=== PATIENT | female | born 1990 | race Caucasian/White ===

== ENCOUNTER 2017-03-16 05:37 | Outpatient (CLI) | payer OTHER ==
[~2017-03-16] VITALS: Ht 162.6 cm; Wt 56.2 kg
[~2017-03-16 05:37] MED LIST: ACET1TAB43 PO; ACHD5005 PO; DOCU100C37 PO; DOXY100C2 PO; FERR325T18 PO; IBUP-1773 PO; PREN1TAB76 PO
== END 2017-03-16 11:12 ==
LOC: PREOP 05:37
PROVIDERS: ATTEND Surgery
DX: Z01.818 Encounter for other preprocedural examination (principal); R19.4 Change in bowel habit

== ENCOUNTER 2017-03-23 10:32 | Day surgery (SDC) | payer OTHER ==
[~2017-03-23] VITALS: Ht 162.6 cm; Wt 56.2 kg
[2017-03-23] MEDS ORDERED: LACTATED RINGERS 1,000 ML IV ONE (10:49)
[2017-03-23 11:02] VITALS: BP 116/70
[2017-03-23] MEDS ORDERED: LACTATED RINGERS 1,000 ML IV SCH (11:15)
--- NOTE | 2017-03-23 11:44 | Progress Note-Pre Operative ---
Pre-Operative Progress Note H&P Reviewed The H&P was reviewed, patient examined and no changes noted. Time Seen by Provider: 11:30 Date H&P Reviewed: Mar 23, 2017 Time H&P Reviewed: 11:28 Pre-Operative Diagnosis: Family hx of colon CA, rectal bleed SANJANA MEDINA DO Mar 23, 2017 11:44
[2017-03-23] MEDS ORDERED: proPOfol 200 MG/20 ML (DIPRIVAN) VIAL IV ONE (11:47)
[2017-03-23] MEDS ORDERED: MIDAZOLAM 2 MG/2 ML (VERSED) VIAL ONE (11:48)
--- NOTE | 2017-03-23 12:30 | Progress Note-Post Operative ---
Post-Operative Progess Note Surgeon (s)/Pediatric Clinical Nurse Specialist (s) Surgeon SANJANA MEDINA DO Pediatric Clinical Nurse Specialist: none Pre-Operative Diagnosis Family hx of colon CA, rectal bleed Post-Operative Diagnosis same Int hemorrhoids Ext hemorrhoids Procedure & Operative Findings Date of Procedure 03/23/17 Procedure Performed/Findings colonoscopy Anesthesia Type IV sedation by anesthesia Estimated Blood Loss Estimated blood loss (mL): scant Specimens/Packing Specimens Removed none SANJANA MEDINA DO Mar 23, 2017 12:30
--- NOTE | 2017-03-23 12:31 | Endoscopy Discharge Instruct ---
Endo Procedure/Findings Findings 1.: Internal Hemorrhoids 2.: Other Findings (External Hemorrhoids) Discharge Instructions - Activity: You might feel a little sleepy until tomorrow. This is due to the medicine you received to relax you. Until tomorrow, you should: NOT drive a car, operate machinery or power tools. NOT drink any alcoholic beverages. NOT make any important decisions or sign importortant papers. Do not return to work until tomorrow, unless otherwise instructed. Resume previous activities tomorrow. Diet: Start by taking liquids. If you tolerate liquids, advance to solid food. Make appointment for one week. Notify Physician - If you experience excessive bleeding, unusual abdominal pain, fever, or chest pain, contact your doctor immediately. Follow-Up: - I have received and understand the above instructions and will call my doctor if I have any further questions. Patient Signature Date Nurse Signature Other (Relationship) SANJANA MEDINA DO Mar 23, 2017 12:31
[2017-03-23 12:40] VITALS: BP 110/70
[2017-03-23 12:58] VITALS: BP 102/68
[2017-03-23 13:15] VITALS: BP 102/68
--- NOTE | 2017-03-23 20:20 | OPERATIVE REPORT ---
DATE OF SERVICE: PREOPERATIVE DIAGNOSES: Strong family history of colon cancer, change in bowel habits, possible rectal bleed. POSTOPERATIVE DIAGNOSES: 1. Internal hemorrhoids. 2. External hemorrhoids. 3. Strong family history of cancer. PROCEDURE: Colonoscopy. SURGEON: Dr. Flores. HEEL VARNISHER: None. ANESTHESIA: IV sedation. SPECIMENS: None. BLOOD LOSS: None. FLUIDS: Per anesthesia. POSTOPERATIVE CONDITION: Stable. INDICATION FOR PROCEDURE: The patient is a 26-year-old female who has a very strong history of colon cancer. Both her mother and father have colon cancer at the young ages. She has had some change in bowel habits and she had some internal and external hemorrhoids that she thought was causing some bleeding. She needed colonoscopy. FINDINGS: The patient had some internal and external hemorrhoids, but no other obvious pathology. PROCEDURE NOTE: After informed consent was obtained, the patient was brought to the endoscopy suite, placed in the bed in left lateral decubitus position. She was administered IV sedation by the anesthesiologist, she then monitored her vitals the entire time. Heart rate, blood pressure and pulse ox and the scope was inserted and pushed all the way to about 150 cm, into the cecum, took a picture of the appendiceal orifice, noted the ileocecal valve and then slowly withdrew the scope insufflating to look circumferentially at the harris, looking at the cecum, up the ascending colon to the hepatic flexure and then down the transverse colon to the splenic flexure, into the descending colon and down into the sigmoid and finally into the rectum, retroflexed in the rectal vault, saw some internal hemorrhoids, took a picture of this and then pulled the scope out, took pictures of external hemorrhoids, no other obvious pathology seen. The patient tolerated procedure. She was recovered in the endoscopy suite. Job ID: [id number] DocumentID: [id number] Dictated Date: 03/23/2017 15:31:59 Biomechanical Engineer Date: 03/23/2017 20:19:53 Dictated By: DO AARTI SIERRA
== END 2017-03-23 13:15 | disposition home or self-care (01) ==
LOC: ENDO 10:32
PROVIDERS: ATTEND Surgery
DX: R19.4 Change in bowel habit (principal); K64.4 Residual hemorrhoidal skin tags; K64.8 Other hemorrhoids; Z80.0 Family history of malignant neoplasm of digestive organs
CPT/HCPCS: 84703

== ENCOUNTER → 2017-07-23 | Outpatient (CLI) | payer OTHER ==
--- NOTE | 2017-07-23 17:02 | Diagnostic Imaging Report ---
INDICATION: 26-year-old female, survey. TECHNIQUE: Multiple real-time grayscale images were obtained over the gravid uterus. COMPARISON: None FINDINGS: The cervical length is estimated at 4.2 cm. There is no demonstrated hydronephrosis. There is an unremarkable four-chamber view of the heart. The abdominal cord insertion is unremarkable in appearance. heart rate is identified at 156 beats per minute. There are limited longitudinal images of the spine without demonstrated abnormality. There is no intracranial demonstration. Estimated gestational age based on today's ultrasound measurements is 20 weeks and 6 days +/-1 week. The fetus is in cephalic presentation. The placenta is posterior without demonstrated previa. Biometrical measurements are as follows: Biparietal 4.88 cm, age 20 weeks 6 days. Head circumference 18.49 cm, age 20 weeks 6 days. Abdominal circumference 16.13 cm, age 21 weeks 2 days. Femur length 3.32 cm, age 20 weeks 3 days. Sonographic estimate age: 20 weeks 6 days. Sonographic estimated date of delivery: 12/04/2017. Estimated Weight: 381 gm (+/- 56 gm). LMP percentile: 60%. heart rate: 156 beats per minute. number: 1 of 1. IMPRESSION: 1. Limitations of the survey as described above. 2. No demonstrated abnormality. 3. Single living intrauterine with estimated gestational age of 20 weeks and 6 days +/-1.5 weeks on today's ultrasound measurements. Dictated by: Dictated on workstation # [id number]
== END ==
LOC: RAD 15:36
PROVIDERS: ATTEND Obstetrics & Gynecology
DX: Z36.89 Encounter for other specified antenatal screening (principal); Z3A.20 20 weeks gestation of pregnancy
CPT/HCPCS: 76805

== ENCOUNTER 2017-11-02 20:00 | Inpatient (IN) | payer OTHER ==
[~2017-11-02] VITALS: Ht 161.3 cm; Wt 62.1 kg
[2017-11-02 20:30] LABS: BILIRUBIN,URINE NEGATIVE (NEGATIVE); CLARITY,URINE CLEAR; COLOR,URINE YELLOW; GLUCOSE, URINE (UA) NEGATIVE (NEGATIVE); KETONES,URINE 1+ (NEGATIVE); LEUKOCYTE ESTERASE ,URINE 1+ (NEGATIVE); NITRITE,URINE NEGATIVE (NEGATIVE); PH,URINE 6.5 (5-9); PROTEIN,URINE 1+ (NEGATIVE); UROBILINOGEN,URINE NORMAL (NORMAL)
[2017-11-02 20:46] LABS: BACTERIA,URINE FEW /HPF
[2017-11-02 21:00] VITALS: BP 122/73
[2017-11-02] MEDS ORDERED: AMPICILLIN 2,000 MG/20 ML (IV USE) ONE (21:07)
[2017-11-02] MEDS: D5 LR IV SOLUTION 1,000 ML IV SCH (21:25)
[2017-11-02] MEDS: AMPICILLIN FOR IV USE 1,000 MG in NS (IVPB) 50 ML IV SCH (21:25)
[2017-11-02] MEDS ORDERED: AMPICILLIN FOR IV USE 2,000 MG in NS (IVPB) 50 ML IV SCH (21:28)
--- OUTSIDE RECORDS SUMMARY | 2017-11-02 21:44 | XMS REPORT ---
Author SHAI Thacker [facility] eClinicalWorks Address Unknown Phone Unavailable Care Team Providers Care System Technologist Name Role Phone SHAI SÁNCHEZ CP Unavailable Allergies, Adverse Reactions, Alerts Substance Reaction Event Type Cipro 500 Mg Tablet Info Not Available Non Drug Allergy Problems Problem Type Condition Code Onset Dates Condition Status Problem Urinary tract infection, site not specified 599.0 Active Problem Spasm of muscle 728.85 Active Problem Other and unspecified endocrine, nutritional, metabolic, and immunity disorders V77.99 Active Problem Screening for malignant neoplasm of the cervix V76.2 Active Assessment Acute otitis externa of both ears, unspecified type H60.503 Active Problem Screening examination for venereal disease V74.5 Active Problem Need for prophylactic vaccination and inoculation, Influenza V04.81 Active Problem Dehydration 276.51 Active Problem Encounter for long-term (current) use of other medications V58.69 Active Problem Dysuria 788.1 Active Problem Urinary frequency 788.41 Active Problem Essential hypertension, benign 401.1 Active Problem Hip, thigh, leg, and ankle, insect bite, nonvenomous, without mention of infection 916.4 Active Problem Allergic rhinitis, cause unspecified 477.9 Active Problem General counseling for prescription of oral contraceptives V25.01 Active Problem Unspecified viral infection, in conditions classified elsewhere and of unspecified site 079.99 Active Problem Other general counseling and advice for contraceptive management V25.09 Active Problem Unspecified cystitis 595.9 Active Problem Unspecified breast screening V76.10 Active Problem Unspecified vaginitis and vulvovaginitis 616.10 Active Problem Leukorrhea, not specified as infective 623.5 Active Medications Medication Code System Code Instructions Start Date End Date Status Dosage Vitamin [facility] [address]21 27-0.8 MG Orally not defined Colace [facility] [address]-99 100 MG Orally Once a day 1 capsule as needed Cortisporin [facility] [address]-32 3.5-73779-1 Otic Three times a day Oct 09, 2015 4 drops into affected ear Tums [facility] [address]-53 500 MG Orally Four times a day 1 tablet Procedures Procedure Coding System Code Date Office Visit, Est Pt., Level 3 CPT-4 42471 Oct 09, 2015 Vital Signs Date/Time: Oct 09, 2015 Cardiac Monitoring Heart Rate 78 bpm Weight 132.6 lbs Height 63 in BMI 23.49 Index Blood Pressure Diastolic 62 mmHg Blood Pressure Systolic 98 mmHg Results No Known Results Summary Purpose eClinicalWorks Submission
--- OUTSIDE RECORDS SUMMARY | 2017-11-02 21:44 | XMS REPORT ---
Author Author ROMAINE JOSHI [facility] [place] eClinicalWorks Address Unknown Phone Unavailable Care Team Providers Care Micro Photographer Name Role Phone ROMAINE JOSHI CP Unavailable Allergies, Adverse Reactions, Alerts Substance [...] neoplasm of the cervix V76.2 Active Assessment Symptoms of urinary tract infection R39.9 Active Problem Screening examination for venereal disease [...] Instructions Start Date End Date Status Dosage Macrobid [facility] [address]-18 100 MG Orally every 12 hrs August 18, 2015 August 25, 2015 1 capsule with food Vitamin [facility] [address]8846 27-0.8 MG Orally not defined Pyridium [facility] [address]-17 200 mg Orally Three times a day prn burning with urination August 18, 2015 August 20, 2015 1 tablet after meals Procedures Procedure Coding System Code Date Office Visit, Est Pt., Level 3 CPT-4 11262 August 18, 2015 URINALYSIS, AUTO, W/O SCOPE CPT-4 58353 August 18, 2015 Vital Signs Date/Time: August 18, 2015 Cardiac Monitoring Heart Rate 80 bpm Weight 132.4 lbs Height 63 in Blood Pressure Diastolic 70 mmHg Blood Pressure Systolic 104 mmHg Results No Known Results Summary Purpose eClinicalWorks Submission
--- OUTSIDE RECORDS SUMMARY | 2017-11-02 21:44 | XMS REPORT ---
Author Author SOLE WALKER [facility] eClinicalWorks Address Unknown Phone Unavailable Care Team Providers Care Mission Worker Name Role Phone SOLE WALKER CP Unavailable Allergies No Known Allergies Problems Problem Type Condition ICD-9 Code Onset Dates Condition Status Problem Urinary tract infection, site not specified 599.0 Active Problem Spasm of muscle 728.85 Active Problem Other and unspecified endocrine, nutritional, metabolic, and immunity disorders V77.99 Active Problem Screening for malignant neoplasm of the cervix V76.2 Active Problem Screening examination for venereal disease [...] not specified as infective 623.5 Active Medications No Known Medications Results No Known Results Summary Purpose eClinicalWorks Submission
--- OUTSIDE RECORDS SUMMARY | 2017-11-02 21:44 | XMS REPORT ---
Author ICRO Beckman [facility] eClinicalWorks Address Unknown Phone Unavailable Care Team Providers Care Leacher Name Role Phone CIRO MENG CP Unavailable Allergies No Known Allergies Problems Problem Type Condition ICD-9 Code Onset Dates Condition Status Problem Urinary tract infection, site not specified 599.0 Active Problem Spasm of muscle 728.85 Active Problem Other and unspecified endocrine, nutritional, metabolic, and immunity disorders V77.99 Active Problem Screening for malignant neoplasm of the cervix V76.2 Active Assessment Positive test V72.42 Active Problem Screening examination for venereal disease [...] infective 623.5 Active Medications No Known Medications Procedures Procedure Coding System Code Date URINE TEST CPT-4 58750 Oct 17, 2014 Results No Known Results Summary Purpose eClinicalWorks Submission
--- OUTSIDE RECORDS SUMMARY | 2017-11-02 21:44 | XMS REPORT | Clinical Summary ---
Author Author [facility] Organization [facility] Address Unknown Phone Unavailable Care Team Providers Care Chemistry Tutor Name Role Phone PCP Unavailable Source Comments Some departments are not documenting in the electronic medical record. If you do not see the information that you expected, contact Release of Information in the Health Information Management department at [phone] for further assistance in locating additional records.[facility] Allergies Not on File Current Medications Not on file Active Problems Not on file Social History Tobacco Use Types Packs/Day Years Used Date Never Assessed Sex Assigned at Date Recorded Not on file Last Filed Vital Signs Not on file Plan of Treatment Health Maintenance Due Date Last Done Comments PHYSICAL (COMPREHENSIVE) 1996 EXAM PERTUSSIS VACCINE 2000 HIV SCREENING 2004 TETANUS VACCINE 2006 CERVICAL CANCER SCREENING 2010 INFLUENZA VACCINE 11/08/2017 HPV VACCINES Aged Out No longer eligible based on patient's age to complete this topic Results Not on filefrom Last 3 Months
[2017-11-02] MEDS ORDERED: BETAMETHASONE ACE/NA PHOS 6 MG/ML (CELESTONE SOLUSPAN) IM SCH (22:00)
[2017-11-02 22:03] LABS: BASOPHILS % (AUTO) 1 % (0-10); EOSINOPHILS # (AUTO) 0.1 10^3/uL (0.0-0.3); EOSINOPHILS % (AUTO) 1 % (0-10); HEMATOCRIT 33 % (35-52); HEMOGLOBIN 10.8 G/DL (11.5-16.0); LYMPHOCYTES # (AUTO) 2.1 X 10^3 (1.0-4.0); LYMPHOCYTES % (AUTO) 32 % (12-44); MEAN CORPUSCULAR HEMOGLOBIN 29 PG (25-34); MEAN CORPUSCULAR HGB CONC 33 G/DL (32-36); MEAN CORPUSCULAR VOLUME 88 FL (80-99); MEAN PLATELET VOLUME 11.1 FL (7.4-10.4); MONOCYTES # (AUTO) 0.5 X 10^3 (0.0-1.0); MONOCYTES % (AUTO) 8 % (0-12); NEUTROPHILS # (AUTO) 3.8 X 10^3 (1.8-7.8); NEUTROPHILS % (AUTO) 59 % (42-75); PLATELET COUNT 139 10^3/uL (130-400); RED CELL DISTRIBUTION WIDTH 12.7 % (10.0-14.5); WHITE BLOOD COUNT 6.5 10^3/uL (4.3-11.0)
[2017-11-02] MEDS ORDERED: ACETAMINOPHEN 500 MG TAB (TYLENOL) PO PRN (23:15)
[2017-11-02] MEDS ORDERED: SUFENTA 0.6MCG/ML BUPIVA 0.125 100 ML ONE (23:43)
[2017-11-03] VITALS (57 sets, daily range): BP systolic 85–110; BP diastolic 50–73
[2017-11-03] MEDS: AMPICILLIN FOR IV USE 1,000 MG in NS (IVPB) 50 ML IV SCH ×2 (01:08→06:10)
[2017-11-03] MEDS ORDERED: ONDANSETRON 4 MG/2 ML (SDV) Z0FRAN ONE (01:25)
[2017-11-03] MEDS ORDERED: FAMOTIDINE 20MG/2ML IV (PEPCID) ONE (01:25)
[2017-11-03] MEDS: EPIDURAL (SUFENTA 0.6MCG/ML BUPIVA 0.125%) 100 ML BAG EPI SCH ×2 (01:27→06:10)
[2017-11-03] MEDS ORDERED: LACTATED RINGERS 1,000 ML IV SCH (01:32)
[2017-11-03] MEDS ORDERED: diphenhydrAMINE 50 MG/ML INJ (BENADRYL) IV PRN (01:45)
[2017-11-03] MEDS ORDERED: ONDANSETRON 4 MG/2 ML (SDV) Z0FRAN IV PRN (01:45)
[2017-11-03] MEDS ORDERED: NALOXONE 0.4 MG/ML 1 ML (NARCAN) VIAL IV PRN ×2 (01:45)
[2017-11-03] MEDS ORDERED: METOCLOPRAMIDE INJ 10 MG/2 ML (REGLAN) IV PRN (01:45)
[2017-11-03] MEDS ORDERED: FAMOTIDINE 20MG/2ML IV (PEPCID) IVP ONE (03:15)
[2017-11-03] MEDS: D5 LR IV SOLUTION 1,000 ML IV SCH (06:10)
--- NOTE | 2017-11-03 07:21 | History & Physical-OB ---
OB - Chief Complaint & HPI Date/Time Date of Admission: Date of Admission: Nov 03, 2017 at 12:20 am Date seen by a Provider: Nov 03, 2017 Time Seen by a Provider: 07:18 Chief Complaint/History OB-Reason for Admission/Chief: Labor Hx : 3 Hx Para: 1 Expected Date of Delivery: Nov 06, 2018 Gestational Age in Weeks: 35 Gestational Age in Days: 2 Other reason for admission: Admitted with contractions and labor by Dr. Mcgee last night. Admission Nurse Assessment Rev: Yes History of Labs B neg Antibody neg RI RPR HBsAg NR HIV NR GC neg GBS unknown Allergies and Home Medications Allergies Coded Allergies: ciprofloxacin (Verified Allergy, Mild, 11/17/14) Home Medications No Active Prescriptions or Reported Meds Patient Home Medication List Home Medication List Reviewed: Yes OB - History Hx of Present Care: Yes Ultrasounds: Normal mid trimester US Obstetrical Complications: Other ( labor) Medical Complications: None Obstetrical History Hx : 3 Hx Para: 1 Hx Total # of Abortions (Spona: 1 Delivery History Hx Dystocia: No Hx Large For Gestational Age I: No Hx Small for Gestational Age I: No Hx Section: No Hx Vaginal Delivery Post C-Sec: No Hx Blood Disorders: No Adverse Rxn to Tranfusion: No (N/A) Patient Past Medical History GERD with on PPI Social History/Family History HIV/AIDS: No Recent Infectious Disease Expo: No Sexually Transmitted Disease: No Alcohol Use: Denies Use Recreational Drug Use: No Immunizations Hepatitis A: Yes Hepatitis B: Yes Tetanus Booster (TDap): Less than 5yrs Date of Influenza Vaccine: Nov 23, 2016 OB - Admission Exam Physical Exam Vitals: Vital Signs 11/03/17 11/03/17 03:15 06:15 Temp 97.8 Pulse 86 Resp 20 B/P (MAP) 88/52 (64) Pulse Ox 99 O2 Delivery Room Air HEENT: NCAT Heart: Rhythm Normal Lungs: Clear Abdomen: Gravid Extremities: Normal Reflexes: Normal Cervical Dilatation: 7cm Effacement: 75% Station: -1 Membranes: Intact Heart Rate: 120's Accelerations: Accelerations Present Decelerations: Early Decelerations Short Term Variability: Present Sign Hanger Variability: Average (6-25) Contractions on Admission: < 5 Minutes Apart Intensity: Firm Labs Laboratory Tests Test 11/02/17 20:10 11/02/17 21:50 Range/Units Urine Color YELLOW Urine Clarity CLEAR Urine pH 6.5 5-9 Urine Specific [place] 1.015 L 1.016-1.022 Urine Protein 1+ H NEGATIVE Urine Glucose (UA) NEGATIVE NEGATIVE Urine Ketones 1+ H NEGATIVE Urine Nitrite NEGATIVE NEGATIVE Urine Bilirubin NEGATIVE NEGATIVE Urine Urobilinogen NORMAL NORMAL MG/DL Urine Leukocyte Esterase 1+ H NEGATIVE Urine RBC (Auto) NEGATIVE NEGATIVE Urine RBC NONE /HPF Urine WBC 2-5 /HPF Urine Squamous Epithelial Cells 5-10 /HPF Urine Crystals NONE /LPF Urine Bacteria FEW H /HPF Urine Casts NONE /LPF Urine Mucus SMALL H /LPF Urine Culture Indicated NO White Blood Count 6.5 4.3-11.0 10^3/uL Red Blood Count 3.70 L 4.35-5.85 10^6/uL Hemoglobin 10.8 L 11.5-16.0 G/DL Hematocrit 33 L 35-52 % Mean Corpuscular Volume 88 80-99 FL Mean Corpuscular Hemoglobin 29 25-34 PG Mean Corpuscular Hemoglobin Concent 33 32-36 G/DL Red Cell Distribution Width 12.7 10.0-14.5 % Platelet Count 139 130-400 10^3/uL Mean Platelet Volume 11.1 H 7.4-10.4 FL Neutrophils (%) (Auto) 59 42-75 % Lymphocytes (%) (Auto) 32 12-44 % Monocytes (%) (Auto) 8 0-12 % Eosinophils (%) (Auto) 1 0-10 % Basophils (%) (Auto) 1 0-10 % Neutrophils # (Auto) 3.8 1.8-7.8 X 10^3 Lymphocytes # (Auto) 2.1 1.0-4.0 X 10^3 Monocytes # (Auto) 0.5 0.0-1.0 X 10^3 Eosinophils # (Auto) 0.1 0.0-0.3 10^3/uL Basophils # (Auto) 0.0 0.0-0.1 10^3/uL OB - Assessment/Plan/Diagnosis Assessment Assessment: labor Admission Dx 26 yo @ 35.2 labor GBS unknown Admission Status: Inpatient Order (span 2 midnights) Reason for Inpatient Admission: 26 yo @ 35.2 labor GBS unknown Plan Plan: Expectant Management PAM TERRY DO Nov 03, 2017 7:21 am
[2017-11-03] MEDS ORDERED: FLU QUADRIvalent (5+ YOA) 2018-2019 (AFLURIA) 0.5 ML IM ONE (07:30)
[2017-11-03] MEDS ORDERED: OXYTOCIN/NORMAL SALINE 500 ML IV SCH ×2 (08:31→10:23)
[2017-11-03] MEDS ORDERED: OXYTOCIN/NORMAL SALINE 500 ML IV ONE (08:32)
[2017-11-03] MEDS ORDERED: LIDOCAINE/EPI 2% 1:200,00 (XYLOCAINE) 10 ML VIAL ONE (09:26)
[2017-11-03] MEDS ORDERED: MINERAL OIL CONCENTRATE 99.9% 15 ML UDC ONE (09:27)
[2017-11-03] MEDS ORDERED: WITCH HAZEL(TUCKS) 40 EA JAR TOP PRN (10:30)
[2017-11-03] MEDS ORDERED: BENZOCAINE/MENTHOL (DERMOPLAST) 56 ML CAN TP PRN (10:30)
[2017-11-03] MEDS ORDERED: HYDROcodone/APAP 5 MG/325 MG (LORTAB) TAB PO PRN (10:30)
[2017-11-03] MEDS ORDERED: MEASLES,MUMPS,RUBELLA 1 EA INJ SQ ONE (10:30)
[2017-11-03] MEDS ORDERED: TETANUS,DIPTH,PERTUSS P/F (BOOSTRIX) 0.5 ML VIAL IM ONE (10:30)
[2017-11-03] MEDS ORDERED: IBUPROFEN 600 MG (MOTRIN) TAB PO ONE (10:35)
[2017-11-03] MEDS: IBUPROFEN 600 MG (MOTRIN) TAB PO SCH ×3 (10:40→23:52)
--- NOTE | 2017-11-03 11:36 | OB Labor & Delivery Record ---
L&D History Date of Service Date of Service: Nov 03, 2017 History Expected Date of Delivery: Nov 06, 2018 Gestational Age in Weeks: 35 Hx : 3 Hx Para: 1 Complications Events: Labor <37 wks Operative Indications (Cesarea: N/A-Vaginal Delivery Intrapartal Events: None L&D Stage1 Stage One Onset of Labor - Date: Nov 03, 2017 Monitors and Tracing Monitor Mode: External Heart Rate: 105 Monitor Accelerations: Uniform Station: -2 Car Dumper Operator Variability: Average (6-10) Short Term Variability: Present Presentation: Vertex Vital Signs VS - Last 72 Hours, by Label 11/02/17 11/02/17 11/02/17 11/03/17 21:00 22:00 23:00 00:00 Temp 98.4 Pulse 83 88 Resp 20 20 20 20 B/P (MAP) 122/73 (89) 103/64 (77) O2 Delivery Room Air Room Air Room Air Room Air 11/03/17 11/03/17 11/03/17 11/03/17 01:00 01:27 01:30 01:31 Pulse 89 100 97 Resp 20 20 20 20 B/P (MAP) 103/64 (77) 102/73 (83) 104/72 (83) Pulse Ox 98 99 98 O2 Delivery Room Air Room Air Room Air 11/03/17 11/03/17 11/03/17 11/03/17 01:34 01:37 01:40 01:43 Pulse 99 98 88 82 Resp 20 20 20 20 B/P (MAP) 95/62 (73) 99/61 (74) 95/59 (71) 96/58 (71) Pulse Ox 99 98 98 97 O2 Delivery Room Air Room Air Room Air Room Air 11/03/17 11/03/17 11/03/17 11/03/17 01:45 01:50 01:55 02:00 Pulse 95 89 88 90 Resp 20 20 20 20 B/P (MAP) 96/57 (70) 93/54 (67) 98/61 (73) 100/59 (73) Pulse Ox 97 92 97 97 O2 Delivery Room Air Room Air Room Air Room Air 11/03/17 11/03/17 11/03/17 11/03/17 02:15 02:30 02:45 03:00 Pulse 86 86 86 77 Resp 20 20 20 20 B/P (MAP) 99/59 (72) 99/59 (72) 99/53 (68) 92/52 (65) Pulse Ox 97 97 98 80 O2 Delivery Room Air Room Air Room Air Room Air 11/03/17 11/03/17 11/03/17 11/03/17 03:15 03:30 03:45 04:00 Temp 97.8 Pulse 68 75 72 64 Resp 20 20 20 20 B/P (MAP) 88/53 (65) 89/51 (64) 89/50 (63) 88/55 (66) Pulse Ox 97 97 97 98 O2 Delivery Room Air Room Air Room Air Room Air 11/03/17 11/03/17 11/03/17 11/03/17 04:15 04:30 04:45 05:00 Pulse 78 63 70 Resp 20 20 20 20 B/P (MAP) 90/51 (64) 85/50 (62) 89/52 (64) Pulse Ox 98 98 98 O2 Delivery Room Air Room Air Room Air Room Air 11/03/17 11/03/17 11/03/17 11/03/17 05:15 05:30 05:45 06:00 Pulse 68 68 78 88 Resp 20 20 20 20 B/P (MAP) 91/57 (68) 92/57 (69) 93/61 (72) 94/66 (75) Pulse Ox 98 98 99 98 O2 Delivery Room Air Room Air Room Air Room Air 11/03/17 11/03/17 11/03/17 11/03/17 06:15 06:30 06:45 07:00 Pulse 86 71 90 95 Resp 20 20 20 20 B/P (MAP) 88/52 (64) 90/55 (67) 93/54 (67) 98/62 (74) Pulse Ox 99 98 98 100 O2 Delivery Room Air Room Air Room Air Room Air 11/03/17 11/03/17 07:15 07:30 Temp 98.0 Pulse 79 79 Resp 18 18 B/P (MAP) 94/52 (66) 94/52 (66) Pulse Ox 100 100 O2 Delivery Room Air Room Air Rupture of Membranes Spontaneous Ruture of Membrane: No Amniotic Membrane Rupture Time: 0658 Amniotic Membrane Fluid Desc.: Clear Vaginal Bleeding Description: Normal Show Induction/Anesthesia Epidural Cath Placement - Time: 118 L&D Stage2 Stage Two Stage II Date: Nov 03, 2017 Monitors and Tracing Monitor Mode: External Heart Rate: 105 Position: Right Occiput Anterior Presentation: Vertex Cord Descript/Complications Cord Vessel Description: 3 Vessels Delivery Type Infant Delivery Method: Spontaneous Vaginal Anterior Shoulder: Right Episiotomy/Perineal Laceration Laceraction(s)/Extensions: No Condition of Delivery 1 minute Comment: 7 5 minute Comment: 8 Condition of Condition of Infant: Living Exam: No Observed Abnormalities Live male weight 5lbs L&D Stage3 Stage Three Stage III Date: Nov 03, 2017 Pictocin Pitocin Administration Comment: 30 mu Wide open at delivery of placenta Placenta Delivery Placenta Delivery: Spontaneous Delivery Summary Summary Estimated blood loss (mL): 300 Condition of Delivery Examined: Cervix Examined, Uterus Explored Post Hemorrhage: No Condition of Mother stable Condition of Infant (s) stable PAM TERRY DO Nov 03, 2017 11:36 am
[2017-11-03] MEDS ORDERED: CATHETER FLUSH 10 ML SYR IV SCH (14:00)
[2017-11-03] MEDS ORDERED: FERROUS SULF 325 MG (IRON) TAB PO ONE (17:33)
[2017-11-03] MEDS: FERROUS SULF 325 MG (IRON) TAB PO SCH (17:43)
[2017-11-03] MEDS ORDERED: DOCUSATE SODIUM 100 MG (COLACE) CAP PO SCH (21:00)
[2017-11-04 02:03] VITALS: BP 91/44
[2017-11-04 04:56] LABS: BASOPHILS % (AUTO) 0 % (0-10); EOSINOPHILS % (AUTO) 0 % (0-10); HEMATOCRIT 29 % (35-52); HEMOGLOBIN 9.6 G/DL (11.5-16.0); LYMPHOCYTES # (AUTO) 2.1 X 10^3 (1.0-4.0); LYMPHOCYTES % (AUTO) 17 % (12-44); MEAN CORPUSCULAR HEMOGLOBIN 30 PG (25-34); MEAN CORPUSCULAR HGB CONC 34 G/DL (32-36); MEAN CORPUSCULAR VOLUME 89 FL (80-99); MEAN PLATELET VOLUME 11.3 FL (7.4-10.4); MONOCYTES # (AUTO) 0.7 X 10^3 (0.0-1.0); MONOCYTES % (AUTO) 5 % (0-12); NEUTROPHILS # (AUTO) 9.8 X 10^3 (1.8-7.8); NEUTROPHILS % (AUTO) 78 % (42-75); PLATELET COUNT 126 10^3/uL (130-400); RED BLOOD COUNT 3.22 10^6/uL (4.35-5.85); RED CELL DISTRIBUTION WIDTH 12.5 % (10.0-14.5); WHITE BLOOD COUNT 12.5 10^3/uL (4.3-11.0)
[2017-11-04] MEDS: IBUPROFEN 600 MG (MOTRIN) TAB PO SCH (06:24)
[2017-11-04] MEDS ORDERED: PRENATAL VITAMIN 1 EA TAB PO SCH (07:00)
--- NOTE | 2017-11-04 07:04 | Discharge Inst-Women's Service ---
Discharge Inst-Women's Serv Depart Medication/Instructions New, Converted or Re-Newed RX: RX on Chart Consults/Follow Up Additional Follow Up: Yes Orders/Referrals Dr. Terry in 6 weeks Activity Activity: Activity as Tolerated Driving Instructions: No Driving for 1 Week NO SMOKING: NO SMOKING Nothing Inside Vagina: No Douching, No [place], No Tampons Diet Discharge Diet: No Restrictions Symptoms to Report to : Bleeding Excessive, Pain Increased, Fever Over 101 Degrees F, Vaginal Bleeding Increase, Questions/Concerns For Any Problems or Questions: Contact Your Physician Skin/Wound Care Operative Area Clean and Dry: Keep Incision Clean/Dry PAM TERRY DO Nov 04, 2017 7:04 am
[2017-11-04] MEDS ORDERED: DOCU100C37 PO (07:06)
[2017-11-04] MEDS ORDERED: FERR325T18 PO (07:06)
[2017-11-04] MEDS ORDERED: ACHD5005 PO (07:06)
[2017-11-04] MEDS ORDERED: IBUP-844 PO (07:06)
--- NOTE | 2017-11-04 07:32 | Postpartum Progress Note ---
Note Note Day # 1 Subjective: Patient is without complaints. Ambulating, voiding. Tolerating a regular diet without nausea or vomiting. Normal lochia. Pain is well controlled with oral pain medications. [] feeding. [] Objective: Vital Sign - Last 24 Hours 11/03/17 11/03/17 11/03/17 11/03/17 07:45 08:00 08:15 08:30 Pulse 78 75 76 70 Resp 18 18 18 18 B/P (MAP) 95/56 (69) 98/56 (70) 95/62 (73) 93/62 (72) Pulse Ox 100 100 97 100 O2 Delivery Room Air Room Air Room Air Room Air 11/03/17 11/03/17 11/03/17 11/03/17 08:45 09:00 09:05 09:10 Temp 98.9 Pulse 76 77 72 75 Resp 18 18 18 18 B/P (MAP) 92/57 (69) 96/58 (71) 98/50 (66) 94/54 (67) Pulse Ox 99 100 98 100 O2 Delivery Room Air Room Air Room Air Room Air 11/03/17 11/03/17 11/03/17 11/03/17 09:15 09:20 09:30 09:37 Pulse 80 77 94 73 Resp 18 18 18 18 B/P (MAP) 94/53 (67) 107/56 (73) 110/56 (74) 101/59 (73) Pulse Ox 100 100 100 O2 Delivery Room Air Room Air Room Air Room Air 11/03/17 11/03/17 11/03/17 11/03/17 09:45 10:00 10:15 10:30 Temp 97.9 Pulse 73 72 65 65 Resp 18 18 18 18 B/P (MAP) 101/58 (72) 95/63 (74) 99/65 (76) 99/54 (69) O2 Delivery Room Air Room Air Room Air Room Air 11/03/17 11/03/17 11/03/17 11/03/17 10:45 11:00 11:15 11:30 Temp 98.2 Pulse 67 71 65 74 Resp 18 18 18 18 B/P (MAP) 96/57 (70) 92/54 (67) 95/63 (74) 99/62 (74) O2 Delivery Room Air Room Air Room Air Room Air 11/03/17 11/03/17 11/03/17 11/03/17 11:45 12:30 17:30 19:37 Temp 98.4 98.2 98.3 Pulse 88 88 87 90 Resp 18 18 18 18 B/P (MAP) 94/62 (73) 92/61 (71) 96/61 (73) 102/61 (75) Pulse Ox 98 97 98 O2 Delivery Room Air Room Air Room Air Room Air 11/04/17 02:03 Temp 98.8 Pulse 82 Resp 18 B/P (MAP) 91/44 (60) Pulse Ox 98 O2 Delivery Room Air Intake and Output 11/03/17 11/03/17 11/04/17 15:00 23:00 07:00 Intake Total 1625 ml Balance 1625 ml Physical Exam: General - Alert and oriented, no apparent distress Abdomen - Soft, appropriately tender to palpation, non-distended, fundus firm at umbilicus Extremities - no edema, negative Jayashree's bilaterally Assessment: PPD 1 NVD PTL Acute blood loss anemia Plan: Routine care. Encourage breast feeding. Encourage ambulation. Ferrous sulfate supplementation. Plan for discharge today Vitals - Labs Vital Signs - I&O Vital Signs Date Time Temp Pulse Resp B/P (MAP) Pulse Ox O2 Delivery O2 Flow Rate FiO2 11/04/17 02:03 98.8 82 18 91/44 (60) 98 Room Air 11/03/17 19:37 98.3 90 18 102/61 (75) 98 Room Air 11/03/17 17:30 98.2 87 18 96/61 (73) 97 Room Air 11/03/17 12:30 98.4 88 18 92/61 (71) 98 Room Air 11/03/17 11:45 88 18 94/62 (73) Room Air 11/03/17 11:30 74 18 99/62 (74) Room Air 11/03/17 11:15 65 18 95/63 (74) Room Air 11/03/17 11:00 71 18 92/54 (67) Room Air 11/03/17 10:45 98.2 67 18 96/57 (70) Room Air 11/03/17 10:30 65 18 99/54 (69) Room Air 11/03/17 10:15 65 18 99/65 (76) Room Air 9/26/18 10:00 97.9 72 18 95/63 (74) Room Air 11/03/17 09:45 73 18 101/58 (72) Room Air 11/03/17 09:37 73 18 101/59 (73) Room Air 11/03/17 09:30 94 18 110/56 (74) 100 Room Air 11/03/17 09:20 77 18 107/56 (73) 100 Room Air 11/03/17 09:15 80 18 94/53 (67) 100 Room Air 11/03/17 09:10 75 18 94/54 (67) 100 Room Air 11/03/17 09:05 72 18 98/50 (66) 98 Room Air 11/03/17 09:00 77 18 96/58 (71) 100 Room Air 11/03/17 08:45 98.9 76 18 92/57 (69) 99 Room Air 11/03/17 08:30 70 18 93/62 (72) 100 Room Air 11/03/17 08:15 76 18 95/62 (73) 97 Room Air 11/03/17 08:00 75 18 98/56 (70) 100 Room Air 11/03/17 07:45 78 18 95/56 (69) 100 Room Air I & O 11/04/17 07:00 Intake Total 1625 ml Balance 1625 ml Labs Laboratory Tests 11/04/17 04:35: White Blood Count 12.5H, Red Blood Count 3.22L, Hemoglobin 9.6L, Hematocrit 29L , Mean Corpuscular Volume 89, Mean Corpuscular Hemoglobin 30, Mean Corpuscular Hemoglobin Concent 34, Red Cell Distribution Width 12.5, Platelet Count 126L, Mean Platelet Volume 11.3H, Neutrophils (%) (Auto) 78H, Lymphocytes (%) (Auto) 17, Monocytes (%) (Auto) 5, Eosinophils (%) (Auto) 0, Basophils (%) (Auto) 0, Neutrophils # (Auto) 9.8H, Lymphocytes # (Auto) 2.1, Monocytes # (Auto) 0.7, Eosinophils # (Auto) 0.0, Basophils # (Auto) 0.0 PAM TERRY DO Nov 04, 2017 7:32 am
[2017-11-04 08:20] VITALS: BP 99/65
[2017-11-04] MEDS: FERROUS SULF 325 MG (IRON) TAB PO SCH (09:16)
== END 2017-11-04 11:05 | disposition home or self-care (01) | DRG 775 ==
LOC: WSo 20:00 → LDRP 20:00 → UNDOADMOB 21:06 → WSo 21:06 → LDRP 21:06 → OBSVTOIN 11-03 00:20 → INTOOBSV 11-03 00:20 → LDRP 11-03 13:00 → UNDODISIN 11-04 11:05 → EDSTATUS 11-04 13:27
PROVIDERS: ADMIT Obstetrics & Gynecology; ATTEND Obstetrics & Gynecology
PROC: 10E0XZZ Delivery of Products of Conception, External Approach (ICD-10-PCS; principal; 2017-11-03)
DX: O60.14X0 Preterm labor third trimester with preterm delivery third trimester, not applicable or unspecified (principal); O99.62 Diseases of the digestive system complicating childbirth; K21.9 Gastro-esophageal reflux disease without esophagitis; O90.81 Anemia of the puerperium; D62 Acute posthemorrhagic anemia; Z3A.35 35 weeks gestation of pregnancy; Z37.0 Single live birth
CPT/HCPCS: 36415; 81000; 83033; 85025; 86850; 86900; 86901; 99211; 99212; G0378

== ENCOUNTER → 2019-03-21 | Outpatient (CLI) | payer OTHER ==
[~2019-03-21] MED LIST changes: +IBUP-844 PO
--- NOTE | 2019-03-21 13:30 | Diagnostic Imaging Report ---
PROCEDURE: CT abdomen and pelvis without contrast. TECHNIQUE: Multiple contiguous axial images were obtained through the abdomen and pelvis without the use of intravenous contrast. Auto Exposure Controls were utilized during the CT exam to meet ALARA standards for radiation dose reduction. All CT scans use one or more of the following dose optimizing techniques: automated exposure control, MA and/or KvP adjustment based on patient size and exam type or iterative reconstruction. INDICATION: Right flank pain with UTI and fever. FINDINGS: The heart size is normal. The lung bases are clear. The liver is normal in size without focal lesions. Gallbladder appears to be contracted. There is no biliary ductal dilatation. Spleen is normal. Pancreas and adrenal glands are unremarkable. The left kidney is normal in appearance. There appear to be a few punctate stones in the right kidney. There is no evidence of overt hydronephrosis. The appendix is normal. There is an IUD in the uterus. Bowel gas pattern is nonspecific. There is no free air. There is no ascites. There are no focal inflammatory changes. Bladder is normal. There is no pelvic mass, adenopathy, or free fluid. Lumbar spine is unremarkable. IMPRESSION: There appear to be some punctate stones in the right kidney, however, no evidence of overt hydronephrosis or pyelonephritis. The appendix is normal. No other acute abnormality in the abdomen or pelvis. Dictated by: Dictated on workstation # [id number]
== END ==
LOC: RAD 12:42
PROVIDERS: ATTEND Urology
DX: R10.9 Unspecified abdominal pain (principal); Z87.440 Personal history of urinary (tract) infections
CPT/HCPCS: 74176

== ENCOUNTER → 2020-03-11 | Outpatient (CLI) | payer OTHER ==
--- NOTE | 2020-03-11 17:41 | Diagnostic Imaging Report ---
PROCEDURE: CT neck soft tissue without contrast. TECHNIQUE: Multiple contiguous axial images were obtained through the neck without the use of intravenous contrast. Auto Exposure Controls were utilized during the CT exam to meet ALARA standards for radiation dose reduction. INDICATION: Fullness in the neck COMPARISON: No relevant comparison. FINDINGS: There is no pathologically enlarged or obviously morphologically distorted cervical lymph nodes. No suspicious mass or fluid collection is found at this nonenhanced exam. There was no evidence for a cervical abscess. The nasopharynx, oropharynx and hypopharynx unremarkable. The structures of the larynx unremarkable. The prevertebral and retropharyngeal spaces unremarkable. No fluid collection, abscess or airway embarrassment. The bony structures of the cervical spine and central skull base appeared unremarkable. Thoracic inlet and pulmonary apices where visualized unremarkable. Parotid, submandibular and thyroid glands unremarkable. IMPRESSION: Unremarkable noncontrasted soft tissue neck CT. Dictated by: Dictated on workstation # [id number]
== END ==
LOC: RAD 16:05
PROVIDERS: ATTEND Physician Assistant
DX: R22.1 Localized swelling, mass and lump, neck (principal)
CPT/HCPCS: 70490

== ENCOUNTER → 2021-01-06 | Outpatient (CLI) | payer OTHER ==
[~2021-01-06] VITALS: Ht 160 cm; Wt 65.8 kg
[~2021-01-06] MED LIST changes: +ACETAMINOPHEN 500 MG TAB (TYLENOL) PO PRN; +CASIRIVIMAB/IMDEVIMAB 1,200 MG in NS (IVPB) 250 ML IV ONE; -DOXY100C2 PO; +DOXY100C5 PO; +EPINEPHrine INJECTION 1 MG/ML AMP IM PRN; +ONDANSETRON 4 MG/2 ML (SDV) Z0FRAN IV PRN; +diphenhydrAMINE 50 MG/ML INJ (BENADRYL) IV PRN
[2021-01-06 11:41] VITALS: BP 100/75
[2021-01-06 12:44] VITALS: BP 101/69
[2021-01-06 13:36] VITALS: BP 126/72
== END ==
LOC: INFUSION 11:39
PROVIDERS: ATTEND Physician Assistant
DX: U07.1 COVID-19 (principal)

== ENCOUNTER → 2022-06-17 | Outpatient (CLI) | payer OTHER ==
[~2022-06-17] MED LIST changes: +ACET-11 PO; -ACET1TAB43 PO; -ACETAMINOPHEN 500 MG TAB (TYLENOL) PO PRN; -CASIRIVIMAB/IMDEVIMAB 1,200 MG in NS (IVPB) 250 ML IV ONE; -EPINEPHrine INJECTION 1 MG/ML AMP IM PRN; -ONDANSETRON 4 MG/2 ML (SDV) Z0FRAN IV PRN; -diphenhydrAMINE 50 MG/ML INJ (BENADRYL) IV PRN
== END ==
LOC: LAB 15:39
PROVIDERS: ATTEND Nurse Practitioner Family
DX: J02.9 Acute pharyngitis, unspecified (principal)
CPT/HCPCS: 87070

== ENCOUNTER → 2022-06-19 | Outpatient (CLI) | payer OTHER ==
--- NOTE | 2022-06-19 15:38 | Diagnostic Imaging Report ---
PROCEDURE: US Thyroid. TECHNIQUE: Multiple real-time grayscale images were obtained of the thyroid in various projections. INDICATION: Neck pain. COMPARISON: CT soft tissue neck of 03/11/2020. FINDINGS: Right thyroid lobe: The right thyroid lobe measures 5.5 x 1.5 x 1.5 cm. There is a hypoechoic well-circumscribed 0.5 cm nodule with no echogenic foci in the mid right thyroid lobe (TI RADS 4). The background has normal homogeneous echogenicity. Isthmus: The thyroid isthmus measures 0.3 cm. Left thyroid lobe: The left thyroid lobe measures 4.7 x 1.4 x 1.8 cm. Normal homogeneous echogenicity without nodule. IMPRESSION: Single tiny right thyroid nodule does not meet imaging guidelines for FNA or dedicated follow-up. ACR TI-RADS: TR4 . TI-RADS Recommendations:TR4 - Moderately Suspicious: FNA if >1.5 cm; Follow if > 1.0 cm at 1, 2, 3 and 5 years. Dictated by: Dictated on workstation # [id number]
== END ==
LOC: RAD 14:42
PROVIDERS: ATTEND Nurse Practitioner Family
DX: E04.1 Nontoxic single thyroid nodule (principal)
CPT/HCPCS: 76536